=== PATIENT | female | born 1965 | race Caucasian/White ===

== ENCOUNTER 2020-03-24 17:02 | Emergency (ER) | payer MEDICAID ==
[~2020-03-24] VITALS: Ht 152.4 cm; Wt 60.8 kg
[2020-03-24 17:09] VITALS: Ht 152.4 cm; Wt 60.8 kg
[2020-03-24 18:59] VITALS: BP 108/74
[2020-03-26] MEDS ORDERED: GLUMETZA1000 MG (06:39)
[2020-03-26] MEDS ORDERED: JANUVIA25 M1 (06:39)
[2020-03-26] MEDS ORDERED: JARDIANCE10 MG (06:39)
== END 2020-03-24 19:00 | disposition home or self-care (01) ==
LOC: ED 17:02
DX: R11.2 Nausea with vomiting, unspecified (principal); E11.9 Type 2 diabetes mellitus without complications; Z98.818 Other dental procedure status; Z90.49 Acquired absence of other specified parts of digestive tract; Z98.890 Other specified postprocedural states
CPT/HCPCS: 82962; J0690; J2405; J2765; J7030; J7060